=== PATIENT | female | born 1945 | race Caucasian/White ===

== ENCOUNTER 2016-06-12 18:05 | Emergency (ER) | payer SELFPAY ==
[~2016-06-12] VITALS: Ht 167.6 cm; Wt 67.6 kg
[~2016-06-12 18:05] MED LIST: ARIP1SOL; ASPI-535; LORA-441; ROSU5TAB5; VENL25TA17; VIC; [UNRECOGNIZED DRUG - CODE]
[2016-06-12 19:05] VITALS: Ht 167.6 cm; Wt 67.6 kg
== END 2016-06-12 19:11 | disposition left against medical advice (07) ==
LOC: FTE 18:05
DX: Z53.21 Procedure and treatment not carried out due to patient leaving prior to being seen by health care provider (principal)